=== PATIENT | male | born 1990 | race Two or more races ===

== ENCOUNTER 2021-07-07 16:05 | Outpatient (CLI) | payer OTHER | END 2021-07-07 17:29 | disposition home or self-care (01) | LOC: LAB 16:05 → RAD 16:05 | PROVIDERS: ATTEND Orthopaedic Surgery | DX: M25.512 Pain in left shoulder (principal); M25.511 Pain in right shoulder; M25.522 Pain in left elbow; M79.641 Pain in right hand ==